=== PATIENT | male | born 1950 | race Caucasian/White ===

== ENCOUNTER 2020-10-22 13:32 | Emergency (ER) | payer BC, OTHER ==
--- NOTE | 2020-10-22 13:52 | ED.PDOC ---
History of Present Illness - General Chief Complaint: Problem Time Seen by Provider: 10/22/20 13:48 Source: patient Exam Limitations: no limitations - History of Present Illness Initial Comments: CHRONIC PAINLESS HEMATURIA OVER A YEAR, PREVIOUS W/U IN [place], [facility], BUT APPARENTLY LIVES HERE. Timing/Duration: other - OVER A YEAR Quality: severe Onset Location: unknown Radiation: none Activites at Onset: none Prior abdominal problems: similar symptoms Improving Factors: nothing Worsening Factors: nothing Associated Symptoms: denies symptoms Allergies/Adverse Reactions: Allergies NO KNOWN ALLERGY Allergy (Verified 10/22/20 13:58) Home Medications: Ambulatory Orders levoFLOXacin [Levaquin] 500 mg PO DAILY #10 tab 10/22/20 Review of Systems - Review of Systems Constitutional: States: no symptoms reported EENTM: States: no symptoms reported Respiratory: States: no symptoms reported Cardiology: States: no symptoms reported Gastrointestinal/Abdominal: States: no symptoms reported Genitourinary: States: see HPI Musculoskeletal: States: no symptoms reported Family Medical History - Family History Mother Family History: Unknown Physical Exam - Physical Exam General Appearance: Alert, Well Developed, Well Groomed, Well Hydrated, Well Nourished Eyes, Ears, Nose, Throat Exam: PERRL/EOMI, normal ENT inspection, TMs normal, pharynx normal Neck: non-tender, full range of motion, supple, normal inspection Cardiovascular/Respiratory: regular rate, rhythm, no M/R/G, normal peripheral pulses, no JVD, normal breath sounds, no respiratory distress Gastrointestinal/Abdominal: normal bowel sounds, non tender, soft, no organomegaly Back Exam: normal inspection, no CVA tenderness, no vertebral tenderness, CVA tenderness (L) Extremity: normal range of motion, non-tender, normal inspection, no pedal edema Neurologic: no motor/sensory deficits, alert, normal mood/affect, oriented x 3 Skin Exam: normal color, warm/dry, cyanosis Lymphatic: no adenopathy Departure - Departure Clinical Impression: Bladder mass Time of Disposition: 15:05 Disposition: Discharge to Home or Self Care Condition: Poor Departure Forms: ED Discharge - Pt. Copy, Patient Portal Self Enrollment Referrals: Lc Wiseman MD [Active Staff] - 1-2 Weeks Prescriptions: levoFLOXacin [Levaquin] 500 mg PO DAILY #10 tab Home Medications: Ambulatory Orders levoFLOXacin [Levaquin] 500 mg PO DAILY #10 tab 10/22/20 Additional Instructions: RECOMMEND FOLLOW UP WITH UROLOGY JOANN. START ANTIBIOTICS TODAY.
--- NOTE | 2020-10-22 14:39 | CT ---
Study: CT abdomen and pelvis. Indication: HEMATURIA Technique: CT of the abdomen and pelvis obtained without intravenous contrast. This exam was performed according to our departmental dose-optimization program, which includes automated exposure control, adjustment of the mA and/or kV according to patient size and/or use of iterative reconstruction technique. Comparison: None. Findings: 8 mm noncalcified pulmonary nodule at the base right lower lobe. Emphysema. Heart size normal. Cholecystectomy clips. Pancreas, spleen, and adrenal glands demonstrate a normal unenhanced CT appearance. Several millimetric nonobstructing bilateral renal calculi. Bilateral renal cysts. No hydronephrosis. Marked prostatomegaly which is contiguous with a masslike lesion of the posterior bladder. Is unclear if this reflects a prostate gland mass or a bladder mass. This dominant mass component measures up to 7.6 cm in diameter and demonstrates several punctate calcifications. Colonic diverticulosis. Stomach and small bowel unremarkable. No free fluid. No free air. No pathologically enlarged lymphadenopathy. Marked atherosclerosis. Infrarenal abdominal aortic aneurysm measuring up to 3.4 cm in diameter. Degenerative changes of the spine noted. Impression: Large masslike lesion posterior bladder which may originate from the bladder or prostate gland and is difficult to characterize in the absence of postcontrast delayed imaging. Urology consultation recommended. 8mm right lower lobe noncalcified pulmonary nodule in the setting of emphysema. Follow-up CT chest in 6-12 months recommended and follow-up CT at 18-24 months. Infrarenal abdominal aortic aneurysm. Follow-up sonogram recommended every 3 years. Multiple nonobstructing bilateral renal calculi without hydronephrosis. Additional findings as above. Electronically signed by: Maik Calderon MD 10/22/2020 2:37 PM [facility]
[2020-10-22 15:23] VITALS: BP 142/89; TEMP 97.2; O2SAT 97
== END 2020-10-22 15:22 | disposition home or self-care (01) ==
LOC: ER 13:32
DX: N32.89 Other specified disorders of bladder (principal); R31.0 Gross hematuria